=== PATIENT | female | born 1980 | race Caucasian/White ===

== ENCOUNTER 2018-09-08 21:00 | Outpatient (CLI) | payer BC ==
[2018-09-08] MEDS ORDERED: ACETAMINOPHEN TAB 325 MG TAB PO STA (22:14)
[2018-09-08 22:32] LABS: Appearance,Urine Clear (Clear); Bacteria,Urine Moderate /hpf; Bilirubin,Urine Negative (Negative); Blood,Urine Negative (Negative); Color,Urine Light Yellow; Glucose,Urine (UA) Negative (Negative); Ketones,Urine Negative (Negative); Leukocyte Esterase,Urine Trace (Negative); Mucus,Urine Occasional /hpf; Nitrite,Urine Negative (Negative); Protein,Urine Negative (Negative); RBC,Urine 1 /hpf (0-5); Specific Gravity,Urine 1.011 (1.001-1.035); Squamous Epithelial Cell,Urine 1 /hpf (0-4); Urobilinogen,Urine <2.0 mg/dL (<2.0); WBC,Urine 3 /hpf (0-5)
[2018-09-09 01:10] VITALS: BP 133/64; PULSE 82; RESP 18; TEMP 98
--- NOTE | 2018-09-22 18:01 | P.MSEPDOC ---
Presenting Problems - Arrival Data Date of Arrival on Unit: 09/08/18 Time of Arrival on Unit: 21:01 Mode of Transport: Wheelchair - Complaint OB-Reason for Admission/Chief Complaint: Possible Onset of Labor Comment: contractions felt in back that are 15-20 minutes apart. Medical History - Information : 4 Para: 3 Term: 0 : 3 Abortions: Spontaneous or Elective: 0 Number of Living Children: 3 - Gestational Age Gestational Age by NILA (wks/days): 32 Weeks and 4 Days Review of Systems - Review of Systems Constitutional: No problems Breast: No problems ENT: No problems Cardiovascular: No problems Respiratory: No problems Gastrointestinal: No problems Genitourinary: No problems Musculoskeletal: No problems Neurological: No problems Skin: No problems Vital Signs - Temperature Temperature: 98.0 F Temperature Source: Temporal Artery Scan - Pulse Right Sitting Brachial Pulse Rate: 82 Pulse Assessment Method: Automatic Cuff - Respirations Respiratory Rate: 18 Oxygen Delivery Method: Room Air - Blood Pressure Right Arm Sitting Blood Pressure: 133/64 Blood Pressure Mean: 87 Blood Pressure Source: Automatic Cuff Medical Screen Scoring (Pre) - Cervical Exam Dilation: 0 cm = 0 Membranes: Intact - Uterine Contractions Frequency: N/A Duration: N/A Intensity: N/A - Maternal Vital Signs Maternal Temperature: N/A Maternal Blood Pressure: N/A Signs of Preeclampsia: N/A Maternal Respirations: N/A - Pain Assessment Pain Location and Character: Lower, Back Pain Scale Used: Numeric (1 - 10) Pain Intensity: 6 Pain Management Goal: 3 Pain Description: *Acute, Cramping, Pressure Pain Radiation Location: n/a Pain Frequency: Intermittent Pain Duration: 15 Pain Duration Units: Minutes Pain Behavior: Facial Grimacing, Vomiting Pain Aggravating Factors: Activity, Walking Pharmacological Interventions: PRN Medication, Scheduled Medication - Assessment Baseline FHR: 120 Heart Rate - NICHD Category: Category I (Normal) = 0 NST: Reactive Position: N/A - Total Score Total Score (Pre): 0 - Level of Risk Level of Risk: Low (0-5) Physician Notification (Pre) - Physician Notified Physician Notified Date: 09/08/18 Physician Notified Time: 22:08 Physician/Practitioner Notifed:: chloé Spoke With: chloé New Order Received: Yes - Notification Comment Comment: UA, oral hydration, tylenol PO Physician Notification (Post) - Physician Notified Physician Notified Date: 09/09/18 Physician Notified Time: 22:08 Physician/Practitioner Notified:: chloé Spoke With: chloé New Order Received: Yes Disposition - Disposition OB Disposition: Discharge to home Discharge Date: 09/08/18 Discharge Time: 23:10 I agree with the RN Medical Screening Exam: Yes Risk & Benefit of care provided described in d/c instruction: No Diagnosis: FALSE LABOR BEFORE 37 COMPLETED WEEKS OF GEST, THIRD TRI
== END 2018-09-08 23:10 | disposition home or self-care (01) ==
LOC: FBPOP 21:00
PROVIDERS: ATTEND Obstetrics & Gynecology
DX: O47.03 False labor before 37 completed weeks of gestation, third trimester (principal); Z3A.32 32 weeks gestation of pregnancy
CPT/HCPCS: 59025; 81001; 99213

== ENCOUNTER 2018-10-06 13:42 | Outpatient (CLI) | payer BC ==
[2018-10-06 15:11] VITALS: BP 116/65; PULSE 90; RESP 16; TEMP 98.6
--- NOTE | 2018-11-05 11:53 | P.MSEPDOC ---
Presenting Problems - Arrival Data Date of Arrival on Unit: 10/06/18 Time of Arrival on Unit: 13:42 Mode of Transport: Ambulatory - Complaint OB-Reason for Admission/Chief Complaint: Rule Out SROM Comment: pt here with c/o leaking clear fluid for last three days, reports + fm , denies complications with , reports occasional contracitons that are irregular Medical History - Information : 4 Para: 3 Term: 3 : 0 Abortions: Spontaneous or Elective: 0 Number of Living Children: 3 - Gestational Age Gestational Age by NILA (wks/days): 36 Weeks and 3 Days Review of Systems - Review of Systems Constitutional: No problems Breast: No problems ENT: Nasal congestion Cardiovascular: No problems Respiratory: No problems Gastrointestinal: No problems Genitourinary: No problems Musculoskeletal: No problems Neurological: No problems Skin: No problems Comment: spoke with dr christopher regarding pt c/o of nasal congestion, pt instructed to try sudafed, claritin or tylenol products for relief Vital Signs - Temperature Temperature: 98.6 F Temperature Source: Temporal Artery Scan - Pulse Right Brachial Pulse Rate: 90 Pulse Assessment Method: Automatic Cuff - Respirations Respiratory Rate: 16 Oxygen Delivery Method: Room Air - Blood Pressure Right Arm Blood Pressure: 116/65 Blood Pressure Mean: 82 Blood Pressure Source: Automatic Cuff Medical Screen Scoring (Pre) - Cervical Exam Dilation: 1-3 cm = 1 Membranes: Intact - Uterine Contractions Frequency: > 5 minutes apart = 1 Duration: > 40 seconds = 2 Intensity: N/A - Maternal Vital Signs Maternal Temperature: N/A Maternal Blood Pressure: N/A Signs of Preeclampsia: N/A Maternal Respirations: N/A - Pain Assessment Pain Scale Used: Numeric (1 - 10) Pain Intensity: 0 - Maternal Trauma Maternal Trauma: N/A - Assessment Baseline FHR: 135 Heart Rate - NICHD Category: Category I (Normal) = 0 NST: Reactive Position: N/A Station: N/A - Total Score Total Score (Pre): 4 - Level of Risk Level of Risk: Low (0-5) Physician Notification (Pre) - Physician Notified Physician Notified Date: 10/06/18 Physician Notified Time: 14:33 Physician/Practitioner Notifed:: Dr Christopher Spoke With: Dr Christopher New Order Received: Yes (pa home) - Notification Comment Comment: pt ok to dc home at this time, appt scheduled for october 12 @ 0900 Disposition - Disposition OB Disposition: Discharge to home, Written follow up instructions reviewed Discharge Date: 10/06/18 Discharge Time: 14:40 I agree with the RN Medical Screening Exam: Yes Risk & Benefit of care provided described in d/c instruction: Yes Diagnosis: RELATED CONDITIONS, UNSPECIFIED, THIRD TRIMESTER
== END 2018-10-06 14:40 | disposition home or self-care (01) ==
LOC: FBPOP 13:42
PROVIDERS: ATTEND Obstetrics & Gynecology
DX: O26.93 Pregnancy related conditions, unspecified, third trimester (principal); Z3A.36 36 weeks gestation of pregnancy
CPT/HCPCS: 84112; 99213

== ENCOUNTER 2018-10-18 18:28 | Outpatient (CLI) | payer BC | END 2018-10-18 19:11 | disposition home or self-care (01) | LOC: FBPOP 18:28 | PROVIDERS: ATTEND Obstetrics & Gynecology | DX: O36.8130 Decreased fetal movements, third trimester, not applicable or unspecified (principal); Z3A.38 38 weeks gestation of pregnancy | CPT/HCPCS: 59025; 99213 ==

== ENCOUNTER 2018-10-27 10:39 | Outpatient (CLI) | payer BC ==
[2018-10-27 11:04] VITALS: BP 141/65; PULSE 117; RESP 16; TEMP 98.7
--- NOTE | 2018-11-05 11:54 | P.MSEPDOC ---
Presenting Problems - Arrival Data Date of Arrival on Unit: 10/27/18 Time of Arrival on Unit: 10:47 Mode of Transport: Ambulatory - Complaint OB-Reason for Admission/Chief Complaint: Decreased Movement Comment: pt arrived c/o decreased movement pt states she also passed her mucus plug yesterday Medical History - Information : 4 Para: 3 Term: 3 : 0 Abortions: Spontaneous or Elective: 0 Number of Living Children: 3 - Gestational Age Gestational Age by NILA (wks/days): 39 Weeks and 3 Days Review of Systems - Review of Systems Constitutional: No problems Breast: No problems ENT: No problems Cardiovascular: No problems Respiratory: No problems Gastrointestinal: Diarrhea Genitourinary: No problems Musculoskeletal: No problems Neurological: No problems Skin: No problems Vital Signs - Temperature Temperature: 98.7 F Temperature Source: Oral - Pulse Right Brachial Pulse Rate: 117 Pulse Assessment Method: Automatic Cuff - Respirations Respiratory Rate: 16 Oxygen Delivery Method: Room Air O2 Sat by Pulse Oximetry: 96 - Blood Pressure Right Arm Blood Pressure: 141/65 Blood Pressure Mean: 90 Blood Pressure Source: Automatic Cuff Medical Screen Scoring (Pre) - Cervical Exam Dilation: Exam Deferred Effacement: Exam Deferred Membranes: Intact - Uterine Contractions Frequency: > 5 minutes apart = 1 Duration: N/A Intensity: N/A - Maternal Vital Signs Maternal Temperature: N/A Maternal Blood Pressure: N/A Signs of Preeclampsia: N/A Maternal Respirations: N/A - Pain Assessment Pain Scale Used: Numeric (1 - 10) Pain Intensity: 2 Pain Management Goal: 2 Pain Description: Cramping Pain Behavior: Vocalization - Maternal Trauma Maternal Trauma: N/A - Total Score Total Score (Pre): 1 Medical Screen Scoring (Post) - Cervical Exam Dilation: Exam Deferred Effacement: Exam Deferred Membranes: Intact - Uterine Contractions Frequency: > 5 minutes apart = 1 Duration: N/A Intensity: N/A - Maternal Vital Signs Maternal Temperature: N/A Maternal Blood Pressure: N/A Signs of Preeclampsia: N/A Maternal Respirations: N/A - Assessment Heart Rate: 130 Heart Rate - NICHD Category: Category I (Normal) = 0 NST: Reactive Position: N/A Station: N/A - Total Score Total Score (Post): 1 - Post Treatment Level of Risk Post Treatment Level of Risk: Low (0-5) Physician Notification (Post) - Physician Notified Physician Notified Date: 10/27/18 Physician Notified Time: 12:00 Spoke With: dr christopher New Order Received: Yes - Notification Comment Comment: february discharge home and keep f/u appointment Disposition - Disposition OB Disposition: Discharge to home Discharge Date: 10/27/18 Discharge Time: 12:09 I agree with the RN Medical Screening Exam: Yes Risk & Benefit of care provided described in d/c instruction: Yes Diagnosis: DECREASED MOVEMENTS, THIRD TRIMESTER, UNSP
== END 2018-10-27 12:09 | disposition home or self-care (01) ==
LOC: FBPOP 10:39
PROVIDERS: ATTEND Obstetrics & Gynecology
DX: O36.8130 Decreased fetal movements, third trimester, not applicable or unspecified (principal); Z3A.39 39 weeks gestation of pregnancy
CPT/HCPCS: 59025; 99213

== ENCOUNTER 2018-10-31 09:11 | Inpatient (IN) | payer BC ==
[2018-11-01] MEDS ORDERED: METHYLERGONOVINE 0.2 MG/ML 1 ML AMP IM PRN (01:19)
[2018-11-01] MEDS ORDERED: OXYTOCIN 10 UNIT/ML 1 ML VIAL IM PRN (01:19)
[2018-11-01] MEDS ORDERED: CARBOPROST TROMETHAMINE 250 MCG/ML 1 ML AMP IM PRN (01:19)
[2018-11-01] MEDS ORDERED: LIDOCAINE 1% INJ 10MG/ML (20 ML MDV) SQ PRN (01:19)
[2018-11-01] MEDS ORDERED: TERBUTALINE 1 MG/ML VIAL SQ PRN (01:19)
[2018-11-01] MEDS ORDERED: BUTORPHANOL 1 MG/ML 1 ML VIAL IV PRN (01:22)
[2018-11-01] MEDS: LACTATED RINGERS 1,000 ML IV SCH ×3 (01:26→07:41)
--- NOTE | 2018-11-01 01:27 | P.HPOB ---
History of Present Illness H&P Date: 11/01/18 Chief Complaint: 40 and one sevenths weeks, labor The patient is a 38-year-old 4 para 3003 admitted at 40 and one sevenths weeks as established by 10 week ultrasound. She is admitted in active labor with all signs reassuring. Her has been uncomplicated though she does fall into the category of advanced maternal age and underwent testing which was negative for trisomy. She has additionally requested a tubal ligation which will likely be carried out at her 6 week visit unless a section was to become necessary. Group B strep status is negative. Obstetrical history: 4 para 3003 with 3 term vaginal deliveries without complications. Current statistics are listed in history of present illness. EDC of 10/31/2018 was established by 10 week ultrasound. Laboratory workup demonstrates a blood type of A+ with a negative antibody screen. Rubella status is immune. Remainder of the laboratory workup was within normal limits. Early Glucola was elevated and then followed by a normal three-hour glucose tolerance test as was the second trimester Glucola. Group B strep status is negative. Gynecologic history: Unremarkable with no history of any infections to include STDs. Review of Systems Review of systems is confined to history of present illness. Past Medical History Past Medical History: No Reported History History of Any Multi-Drug Resistant Organisms: None Reported Past Surgical History: No Surgical Hx Reported Smoking Status: Former smoker - Past Family History Mother Family Medical History: Cancer, Congestive Heart Failure (CHF), CVA/TIA, Diabetes Mellitus Medications and Allergies Home Medications Medication Instructions Recorded Confirmed Type ARIPiprazole [Abilify] 8 mg PO HS 09/22/16 11/01/18 History FLUoxetine HCL [PROzac] 10 mg PO HS 09/22/16 11/01/18 History Iron 18 mg PO DAILY 10/06/18 11/01/18 History Omeprazole [PriLOSEC] 10 mg PO DAILY 10/06/18 11/01/18 History Pnv,Calcium 72/Iron/Folic Acid 1 each PO DAILY 10/06/18 11/01/18 History [ Plus Tablet] Allergies Allergy/AdvReac Type Severity Reaction Status Date / Time No Known Allergies Allergy Verified 11/01/18 01:17 Exam Intake and Output 10/31/18 10/31/18 11/01/18 14:59 22:59 06:59 Other: Weight 104.326 kg In general, this is a well-developed, well-nourished white female in no acute distress. Her heart has a regular rhythm and rate without murmur. Her lungs are clear to auscultation bilaterally in all [place]. Her abdomen is gravid, nondistended, has normal active bowel sounds, soft, nontender, and without any palpable masses aside from the uterine fundus. Her extremities are without any cyanosis, clubbing, or edema and are nontender to palpation bilaterally. Digital cervical examination performed on admission demonstrates her cervix to be approximately 6 cm dilated, 90% effaced, with the vertex in presentation at - 2 station. Assessment and Plan (1) Active labor at term Current Visit: Yes Status: Acute Code(s): [id number] - SNOMED Code(s): 90047907 Plan: The patient has been admitted for active management of labor. She has requested an epidural catheter for analgesia which will be placed shortly. Following this, she will have artificial rupture of membranes carried out and then we will continue with expectant management as well as close maternal and surveillance.
[2018-11-01 01:35] VITALS: BMI 40.7
[2018-11-01 01:35] LABS: Anisocytosis Slight; Basophils % (A) 0 %; Eosinophils # (A) 0.1 k/uL (0-0.7); Eosinophils % (A) 1 %; HCT 33.9 % (34.0-46.0); HGB 10.9 gm/dL (11.4-16.0); Lymphocytes # (A) 2.2 k/uL (1.0-4.8); Lymphocytes % (A) 21 %; MCH 25.7 pg (25.0-35.0); MCHC 32.2 g/dL (31.0-37.0); MCV 79.7 fL (80.0-100.0); Mean Platelet Volume 9.6; Microcytosis Slight; Monocytes # (A) 0.5 k/uL (0-1.0); Monocytes % (A) 5 %; Neutrophils # (A) 7.6 k/uL (1.3-7.7); Neutrophils % (A) 71 %; Platelet Count 135 k/uL (150-450); RBC 4.25 m/uL (3.80-5.40); RDW 18.6 % (11.5-15.5); WBC 10.6 k/uL (3.8-10.6)
[2018-11-01] MEDS ORDERED: ROPIVACAINE 5MG/ML 20ML VIAL ONE (01:51)
[2018-11-01] MEDS ORDERED: fentaNYL (PF) 50 MCG/ML 5 ML AMP ONE (01:51)
[2018-11-01] MEDS ORDERED: SODIUM CHLORIDE 0.9% 100 ML BAG ONE (01:51)
[2018-11-01] MEDS ORDERED: OXYTOCIN 20 UNITS/1000 ML NS 1,000 ML IV SCH ×2 (03:00→09:00)
[2018-11-01] MEDS ORDERED: LANOLIN CREAM 5 GM TUBE TOPICAL PRN (08:55)
[2018-11-01] MEDS ORDERED: ZOLPIDEM 5 MG TAB PO PRN (08:55)
[2018-11-01] MEDS ORDERED: BENZOCAINE/MENTHOL SPRAY 1 GM/SPRAY AEROSOL TOPICAL PRN (08:55)
[2018-11-01] MEDS ORDERED: WITCH HAZEL 1 EACH MED..PAD TOPICAL PRN (08:55)
[2018-11-01] MEDS ORDERED: diphenhydrAMINE 25 MG CAP PO PRN (08:55)
[2018-11-01] MEDS ORDERED: ACETAMINOPHEN TAB 325 MG TAB PO PRN (08:55)
[2018-11-01] MEDS ORDERED: SIMETHICONE 80 MG CHEWABLE PO PRN (08:55)
[2018-11-01] MEDS ORDERED: diphenhydrAMINE 50 MG/ML 1 ML VIAL IVP PRN ×2 (08:55)
[2018-11-01] MEDS ORDERED: HYDROCORTISONE 2.5% RECTAL CREAM 30 GM TUBE RECTAL PRN (08:55)
[2018-11-01] MEDS ORDERED: HYDROcodone/APAP 5-325MG 1 EACH TAB PO PRN (08:55)
[2018-11-01] MEDS ORDERED: HYDROcodone/APAP 7.5-325MG 1 EACH TAB PO PRN (08:55)
[2018-11-01] MEDS ORDERED: diphenhydrAMINE 50 MG CAP PO PRN (08:55)
[2018-11-01] MEDS ORDERED: INFLUENZA VACCINE (6 MOS+) 60 MCG/0.5 ML SYRINGE IM ONE (08:56)
--- NOTE | 2018-11-01 08:59 | P.PROBDLV ---
Vaginal Delivery Note - . Vaginal Delivery Note: The patient is a 38-year-old 4 para 3003 admitted at 40 and one sevenths weeks by good dating parameters. She is admitted in active labor with all signs reassuring. Her has been uncomplicated though she falls into the category of advanced maternal age and underwent testing which was negative for trisomy. Group B strep status is negative. On labor and delivery, she had an epidural catheter placed for analgesia and then underwent artificial rupture of membranes demonstrating moderately meconium- stained fluid. She had Pitocin augmentation started and made slow progress through the later second stage of labor but ultimately progressed to complete. She pushed over the course of approximately 30 minutes to a normal spontaneous vaginal delivery of a viable 8 lbs. 10 oz. baby boy with Apgars of 9 at 1 minute and 9 at 5 minutes delivered in the direct occiput anterior position. There was a nuchal cord 1 which was reduced following delivery of the . The placenta was delivered spontaneously, intact, and grossly normal with a grossly normal relatively centrally inserted three-vessel cord. There were no lacerations of the perineum, vagina, or cervix. Estimated blood loss for the case is approximately 200 mL. There were no complications. All sponge, instrument, and needle counts were correct. Both mother and are resting comfortably in recovery.
[2018-11-01] MEDS: IBUPROFEN 600 MG TAB PO PRN ×2 (09:23→19:43)
[2018-11-01] MEDS: SENNOSIDES-DOCUSATE SODIUM 1 EACH TAB PO SCH (22:22)
[2018-11-02] MEDS: SENNOSIDES-DOCUSATE SODIUM 1 EACH TAB PO SCH (07:29)
[2018-11-02] MEDS: IBUPROFEN 600 MG TAB PO PRN (07:30)
[2018-11-02 07:38] VITALS: BP 139/79; PULSE 93; RESP 14; TEMP 97.1
--- NOTE | 2018-11-02 08:45 | P.DS ---
Providers Date of admission: 11/01/18 01:07 Expected date of discharge: 11/02/18 Attending physician: Ricky Mosley Primary care physician: Stated None - Discharge Diagnosis(es) (1) Active labor at term Current Visit: Yes Status: Acute (2) Normal spontaneous vaginal delivery Current Visit: Yes Status: Acute Hospital Course: The patient is a 38-year-old 4 para 3003 admitted at 40 and one sevenths weeks by good dating parameters. She is admitted in active labor with all signs reassuring. Her had been uncomplicated and she had negative testing for trisomy secondary to the category of advanced maternal age. Group B strep status was negative. On labor and delivery, she had an epidural catheter placed for analgesia and underwent artificial rupture of membranes. Pitocin augmentation was started showing thereafter. She made slow progress through the bladder phases of the active phase of labor though she ultimately did progress to complete and then pushed to a normal spontaneous vaginal delivery of a viable 8 lbs. 10 oz. baby boy with Apgars of 9 at 1 minute and 9 at 5 minutes. Her course was unremarkable vital signs remaining stable and her temperature was afebrile throughout. She was deemed stable for discharge on day #1 and was discharged home to follow-up in the office in 6 weeks' time routinely. Discharge instructions included calling for any significantly increased bleeding or foul-smelling lochia, significantly increased fever abdominal pain, perineal complaints, breast complaints, or anything else that concerned her. She was additionally instructed to have nothing in the vagina for at least 6 weeks time to include intercourse. She has requested tubal ligation which will be organized at the time of her visit to be done laparoscopically. She understood all of her instructions and agrees to follow up as noted above. Discharge medications included only [id number] analgesic pain medications as well as continued vitamins as she has opted to breast-feed. Maternal blood type is A+ and rubella status is immune. Procedures: #1. Epidural analgesia #2. Artificial rupture of membranes #3. Pitocin augmentation #4. Normal spontaneous vaginal delivery Patient Condition at Discharge: Good Plan - Discharge Summary New Discharge Prescriptions: No Action ARIPiprazole [Abilify] 8 mg PO HS FLUoxetine HCL [PROzac] 10 mg PO HS Pnv,Calcium 72/Iron/Folic Acid [ Plus Tablet] 1 each PO DAILY Iron 18 mg PO DAILY Omeprazole [PriLOSEC] 10 mg PO DAILY Discharge Medication List ARIPiprazole [Abilify] 8 mg PO HS 09/22/16 [History] FLUoxetine HCL [PROzac] 10 mg PO HS 09/22/16 [History] Iron 18 mg PO DAILY 10/06/18 [History] Omeprazole [PriLOSEC] 10 mg PO DAILY 10/06/18 [History] Pnv,Calcium 72/Iron/Folic Acid [ Plus Tablet] 1 each PO DAILY 10/06/18 [ History] Follow up Appointment(s)/Referral(s): Ricky Mosley MD [STAFF PHYSICIAN] - 6 Weeks Discharge Disposition: HOME SELF-CARE
== END 2018-11-02 10:30 | disposition home or self-care (01) | DRG 807 ==
LOC: 4FBP 11-01 01:07
PROVIDERS: ADMIT Obstetrics & Gynecology; ATTEND Obstetrics & Gynecology
PROC: 10E0XZZ Delivery of Products of Conception, External Approach (ICD-10-PCS; principal; 2018-11-01)
PROC: 00HU33Z Insertion of Infusion Device into Spinal Canal, Percutaneous Approach (ICD-10-PCS; 2018-11-01)
PROC: 3E0R3BZ Introduction of Anesthetic Agent into Spinal Canal, Percutaneous Approach (ICD-10-PCS; 2018-11-01)
DX: O69.81X0 Labor and delivery complicated by cord around neck, without compression, not applicable or unspecified (principal); Z37.0 Single live birth; O77.0 Labor and delivery complicated by meconium in amniotic fluid; O99.62 Diseases of the digestive system complicating childbirth; K21.9 Gastro-esophageal reflux disease without esophagitis; Z3A.40 40 weeks gestation of pregnancy; Z87.891 Personal history of nicotine dependence; Z79.899 Other long term (current) drug therapy; Z82.49 Family history of ischemic heart disease and other diseases of the circulatory system; Z83.3 Family history of diabetes mellitus; Z80.9 Family history of malignant neoplasm, unspecified; Z82.3 Family history of stroke
CPT/HCPCS: 85025; 86850; 86900; 86901; 90686

== ENCOUNTER → 2018-12-31 | Outpatient (CLI) | payer BC ==
[2018-12-31 12:14] LABS: Anisocytosis Slight; Basophils % (A) 0 %; Eosinophils # (A) 0.2 k/uL (0-0.7); Eosinophils % (A) 2 %; HGB 13.3 gm/dL (11.4-16.0); Lymphocytes # (A) 1.8 k/uL (1.0-4.8); Lymphocytes % (A) 26 %; MCH 25.8 pg (25.0-35.0); MCHC 30.9 g/dL (31.0-37.0); MCV 83.2 fL (80.0-100.0); Mean Platelet Volume 8.2; Monocytes # (A) 0.4 k/uL (0-1.0); Monocytes % (A) 5 %; Neutrophils # (A) 4.4 k/uL (1.3-7.7); Neutrophils % (A) 65 %; Platelet Count 205 k/uL (150-450); RBC 5.17 m/uL (3.80-5.40); RDW 16.6 % (11.5-15.5); WBC 6.7 k/uL (3.8-10.6)
== END | disposition home or self-care (01) ==
LOC: LABPAT 11:15
PROVIDERS: ATTEND Obstetrics & Gynecology
DX: Z01.812 Encounter for preprocedural laboratory examination (principal); Z64.0 Problems related to unwanted pregnancy
CPT/HCPCS: 85025

== ENCOUNTER 2019-01-09 08:26 | Day surgery (SDC) | payer BC ==
[2018-12-30 15:20] VITALS: BMI 36.3
[~2019-01-09 08:26] MED LIST: DEXAMETHASONE SOD PHOSPHATE 10 MG/ML 1 ML VIAL IV ONE; LACTATED RINGERS 1,000 ML IV SCH; MIDAZOLAM (PF) 2 MG/2 ML VIAL IV PRN; ONDANSETRON 4 MG/2 ML VIAL IVP ONE; Pre Op ABX Message 1 EACH MISC MISCELLANE ONE; SCOPOLAMINE 1.5MG/72HR PATCH TRANSDERM ONE
[2019-01-09] MEDS ORDERED: LIDOCAINE 1% 20 ML VIAL (10MG/ML) FOR IV START INTRADERMA ONE (08:58)
[2019-01-09] MEDS ORDERED: LACTATED RINGERS 1,000 ML IV ONE (08:58)
[2019-01-09] MEDS ORDERED: KETOROLAC 30 MG/ML 1 ML VIAL IVP PRN (10:09)
[2019-01-09] MEDS ORDERED: Acetaminophen-Codeine 300-30mg TAB PO PRN ×2 (10:09)
[2019-01-09] MEDS ORDERED: diphenhydrAMINE 50 MG/ML 1 ML VIAL IVP PRN (10:09)
[2019-01-09] MEDS ORDERED: METOCLOPRAMIDE 5 MG/ML 2 ML VIAL IVP PRN (10:09)
[2019-01-09] MEDS ORDERED: SIMETHICONE 80 MG CHEWABLE PO PRN (10:09)
[2019-01-09] MEDS ORDERED: ONDANSETRON 4 MG/2 ML VIAL IVP PRN (10:09)
[2019-01-09] MEDS ORDERED: LIDOCAINE 1% INJ 10MG/ML (20 ML MDV) ONE (10:16)
[2019-01-09] MEDS ORDERED: ePHEDrine SULFATE/0.9% NACL/PF 50 MG/5 ML SYRINGE IV ONE (10:16)
[2019-01-09] MEDS ORDERED: SUCCINYLCHOLINE CHLORIDE 100 MG/5 ML SYR IV ONE (10:16)
[2019-01-09] MEDS ORDERED: KETOROLAC 30 MG/ML 1 ML VIAL ONE (10:16)
[2019-01-09] MEDS ORDERED: fentaNYL (PF) 50 MCG/ML 2 ML AMP ONE (10:16)
[2019-01-09] MEDS ORDERED: PROPOFOL 10 MG/ML 20 ML VIAL IV ONE (10:16)
[2019-01-09] MEDS ORDERED: MIDAZOLAM 2 MG/2 ML VIAL ONE (10:16)
[2019-01-09] MEDS ORDERED: ACETAMINOPHEN IV (For NPO) 1,000 MG/100 ML VIAL ONE (10:16)
[2019-01-09] MEDS ORDERED: BUPIVACAINE (PF) 0.5% 30 ML VIAL SQ ONE ×2 (10:38→10:52)
--- NOTE | 2019-01-09 10:58 | P.OP ---
Date of Procedure: 01/09/19 Preoperative Diagnosis: #1. Multiparity #2. Undesired fertility Postoperative Diagnosis: Same Procedure(s) Performed: #1. Laparoscopic bilateral tubal occlusion with Filshie clips Anesthesia: BERTO Surgeon: Ricky Mosley Estimated Blood Loss (ml): 5 IV fluids (ml): 700 Urine output (ml): 75 Pathology: none sent Condition: stable Disposition: PACU Operative Findings: Preoperative pelvic examination demonstrated a roughly 5-6 weeks midplane mobile normal shaped uterus with normal adnexa bilaterally. Intraoperatively, and these findings were borne out with a relatively soft and slightly enlarged uterus consistent with recent status. The uterus, tubes, and ovaries were entirely normal to inspection otherwise. There is no evidence of endometriosis or any other pathology in the pelvis. The appendix was unable to visualize. The small and large intestine as well as the liver and diaphragm appeared normal. Description of Procedure: The patient was prepped and draped in usual fashion after general endotracheal anesthesia was admission by the anesthesiologist. A speculum was placed and the anterior lip of the surgical the single-tooth tenaculum allowing placement of an acorn cannula for manipulation. The bladder was draining approximately 75 mL of clear taqueria urine. Attention was then turned to the abdomen where a roughly half a centimeter incision was made in the vertical fold of the umbilicus allowing insertion of a 5 mm optical trocar under direct visualization without difficulty. A pneumoperitoneum was established. Trendelenburg positioning was utilized and a site was selected approximately 4-5 cm above the pubic symphysis in the midline where an 8 mm incision was made in the transverse plane allowing insertion of an 8 mm trocar under direct visualization without difficulty. A blunt probe was utilized to sweep the bowel from the pelvis and the findings were entirely normal as noted above. The probe was replaced with a Filshie clip applicator which was utilized to place a clip across the entire thickness of the isthmic portion of the fallopian tube on the right approximately 2-3 cm from the cornu of the uterus. A similar operation was carried out on the left without difficulty. After reexamining the abdomen and finding no pathology or other important findings, the entire pneumoperitoneum was evacuated through the 2 ports and the ports removed. The incisions were closed with interrupted subcuticular stitches of 4-0 Vicryl followed by half-inch Steri-Strips placed Mastisol. Prior to coming the incisions with Steri-Strips, each incision was infused with approximate 5 mL of half percent bupivacaine without epinephrine. Estimated blood loss for the entire case was 5 mL or less. There were no complications. All sponge, instrument, and needle counts were correct. The patient tolerated the procedure well and proceeded to the recovery room in stable condition.
[2019-01-09 11:13] VITALS: TEMP 97
[2019-01-09] MEDS: HYDROmorphone 0.5 MG/0.5 ML SYRINGE IVP PRN ×3 (11:36→12:09)
[2019-01-09] MEDS: LACTATED RINGERS 1,000 ML IV SCH ×2 (11:54→12:18)
[2019-01-09 12:53] VITALS: RESP 18
[2019-01-09] MEDS ORDERED: Acetaminophen-Codeine 300-30mg TAB PO ONE (13:20)
[2019-01-09 13:57] VITALS: BP 122/72; PULSE 97
== END 2019-01-09 14:40 | disposition home or self-care (01) ==
LOC: OR 08:26
PROVIDERS: ATTEND Obstetrics & Gynecology
DX: Z30.2 Encounter for sterilization (principal); F32.9 Major depressive disorder, single episode, unspecified; F41.9 Anxiety disorder, unspecified; K21.9 Gastro-esophageal reflux disease without esophagitis; Z79.899 Other long term (current) drug therapy
CPT/HCPCS: 81025; 58671; J2250 ×2; J1100; J2405; J2001; J3010; J1885; J0131; J0330; J2704; J1170

== ENCOUNTER 2019-11-23 12:07 | Observation (INO) | payer BC ==
[2019-11-23] MEDS ORDERED: LIDOCAINE 5% PATCH TOPICAL STA (12:40)
[2019-11-23] MEDS ORDERED: HYDROcodone/APAP 5-325MG 1 EACH TAB PO STA (12:41)
--- NOTE | 2019-11-23 13:07 | XR ---
EXAMINATION TYPE: XR chest 1V portable DATE OF EXAM: 11/23/2019 COMPARISON: NONE HISTORY: Back pain and chest pain after fall TECHNIQUE: Single frontal view of the chest is obtained. FINDINGS: There is no focal air space opacity, pleural effusion, or pneumothorax seen. The cardiac silhouette size is within normal limits. The osseous structures are intact. IMPRESSION: No acute process.
--- NOTE | 2019-11-23 13:08 | XR ---
EXAMINATION TYPE: XR pelvis AP view DATE OF EXAM: 11/23/2019 CLINICAL HISTORY: Pelvic pain and back pain after fall TECHNIQUE: A single AP view of the pelvis is obtained. COMPARISON: None. FINDINGS: There is no acute fracture/dislocation evident in the pelvis. The hip and sacroiliac join ts appear symmetric and unremarkable. The overlying soft tissue appears unremarkable. Tubal ligation clips are seen. IMPRESSION: There is no acute fracture or dislocation in the pelvis.
--- NOTE | 2019-11-23 13:11 | CT ---
EXAMINATION TYPE: CT brain ai gould DATE OF EXAM: 11/23/2019 COMPARISON: None HISTORY: Fall today with head, neck and low back pain. CT DLP: 1531.[address] Brain: Unenhanced CT of the brain was performed. The ventricles, basal cisterns and sulci overlying the cerebral convexities demonstrate a normal appe arance. There is no evidence for intracranial hemorrhage or sulcal effacement. No mass effects are seen. If symptoms persist consider MRI. Osseous calvarium is intact. IMPRESSION: No acute intracranial process CT Cervical Spine: Unenhanced CT of the cervical spine was performed with bone and soft tissue window settings submitted . Coronal and sagittal reconstruction is obtained. There is normal alignment and prevertebral soft tissues. I do not see evidence for fracture or sublu xation. No significant degenerative changes are present. The lung apices are clear. IMPRESSION: No evidence for acute fracture or subluxation of the cervical spine.
--- NOTE | 2019-11-23 13:19 | CT ---
EXAMINATION TYPE: CT lumbar spine wo con DATE OF EXAM: 11/23/2019 1:03 PM COMPARISON: None HISTORY: Fall today with head, neck and low back pain. CT DLP: 1197.6 mGycm Automated exposure control for dose reduction was used. Unenhanced CT of the lumbar spine was performed. Bone and soft tissue window settings are submitted as well as coronal and sagittal reconstructions. No compression deformities. Alignment is anatomic. No compression deformities. Hypertrophic changes n oted anteriorly. Postsurgical change in the pelvis incidentally noted. Assessment spinal canal is limited due to resolution and artifact. Disc bulging L4-L5 noted. Remainin g levels demonstrate no diagnostic evidence of canal stenosis, foraminal encroachment, or disc hernia tion. Partial sacralization of the L5 vertebral segment. There does appear to be a fracture of the left transverse process of T12, L1, and L2. IMPRESSION: 1. Acute fractures left transverse process of the presumed levels of T12, L1 and L2. 2. Disc bulging L4-L5 recommend follow-up MRI for assessment of canal stenosis or disc herniation.
--- NOTE | 2019-11-23 13:37 | ED ---
General Adult HPI - General Chief complaint: Fall Stated complaint: slip/fall/back pain/went unconcious Time Seen by Provider: 11/23/19 12:31 Source: patient Mode of arrival: ambulatory Limitations: no limitations - History of Present Illness Initial comments: Dictation was produced using [email or web address] dictation software. please excuse any grammatical, word or spelling errors. Chief Complaint: 39-year-old female presents with back pain. History of Present Illness: 39-year-old female presents with back pain and head pain after fall. Patient was rushing the house when she slipped on a patch of ice. Patient fell backwards landing on her back and striking her head. Patient does report positive loss of consciousness. Patient has no comorbidities. He states that she has significant back pain to her left lower back. Patient also has some mild occipital pain. The ROS documented in this emergency department record has been reviewed and confirmed by me. Those systems with pertinent positive or negative responses have been documented in the HPI. All other systems are other negative and/or noncontributory. PHYSICAL EXAM: General Impression: Alert and oriented x3, not in acute distress HEENT: Normocephalic atraumatic, extra-ocular movements intact, pupils equal and reactive to light bilaterally, mucous membranes moist. Cardiovascular: Heart regular rate and rhythm, S1&S2 audible, no murmurs, rubs or gallops Chest: Lungs clear to auscultation bilaterally, no rhonchi, no wheeze, no rales Abdomen: Bowel sounds present, abdomen soft, non-tender, non-distended, no organomegaly Musculoskeletal: Pulses present and equal in all extremities, no peripheral edema, tenderness to palpation over the left lower back area, positive straight leg test flexion at the left hip Motor: no focal deficits noted Neurological: CN II-XII grossly intact, no focal motor or sensory deficits noted Skin: Intact with no visualized rashes Psych: Normal affect and mood ED course: 39-year-old female presents with back pain and head pain after fall. All signs upon arrival are within acceptable limits. She has no neurologic deficits. Imaging studies were obtained. Computed tomography scan of the brain shows no acute processes. Computed tomography scan of the L-spine shows acute fractures of the left transverse processes of T12 to L2. Also some disc bulging at L4-L5. Pelvis x-rays nonacute. Chest x-ray is nonacute. Patient is in significant pain. We will plan to have patient admitted to trauma surgery with orthopedic surgery consultation. Discussed patient case with Dr. Heaton was went except patient's care. Discussed patient case with Dr. Prescott who requests to place consultation to Dr. Choco Jeronimo-spine surgery. Patient understandable agreeable to plan. - Related Data Home Medications Medication Instructions Recorded Confirmed ARIPiprazole [Abilify] 8 mg PO HS 09/22/16 12/30/18 FLUoxetine HCL [PROzac] 10 mg PO HS 09/22/16 12/30/18 ALPRAZolam [Xanax] 0.25 mg PO HS PRN 12/30/18 12/30/18 traZODone HCL [TraZODone HCl] 50 mg PO HS PRN 12/30/18 12/30/18 Allergies Allergy/AdvReac Type Severity Reaction Status Date / Time No Known Allergies Allergy Verified 11/23/19 12:20 Review of Systems ROS Statement: Those systems with pertinent positive or pertinent negative responses have been documented in the HPI. ROS Other: All systems not noted in ROS Statement are negative. Past Medical History Past Medical History: No Reported History History of Any Multi-Drug Resistant Organisms: None Reported Past Surgical History: No Surgical Hx Reported Additional Past Surgical History / Comment(s): WISDOM TEETH REMOVED UNDER ANESTHESIA Past Anesthesia/Blood Transfusion Reactions: No Reported Reaction Past Psychological History: Anxiety, Depression Smoking Status: Current every day smoker Past Alcohol Use History: None Reported Past Drug Use History: None Reported - Past Family History Mother Family Medical History: Congestive Heart Failure (CHF), CVA/TIA, Diabetes Mellitus Additional Family Medical History / Comment(s): HAD NON CANCEROUS BRAIN TUMOR General Exam Limitations: no limitations Course Vital Signs 11/23/19 11/23/19 12:20 13:21 Temperature 98.2 F 98.3 F Pulse Rate 79 68 Respiratory 16 18 Rate Blood Pressure 146/76 126/54 O2 Sat by Pulse 98 100 Oximetry Disposition Clinical Impression: Multiple transverse process fractures Disposition: ADMITTED IP TO THIS HOSP Condition: Fair Referrals: Sukhwinder Quevedo MD [Primary Care Provider] - 1-2 days Decision Time: 14:31
[2019-11-23] MEDS ORDERED: ACETAMINOPHEN TAB 325 MG TAB PO PRN (14:25)
[2019-11-23] MEDS ORDERED: ONDANSETRON 4 MG/2 ML VIAL IVP PRN (14:25)
[2019-11-23] MEDS ORDERED: HYDROcodone/APAP 5-325MG 1 EACH TAB PO PRN (14:25)
[2019-11-23] MEDS ORDERED: NALOXONE 0.4 MG/ML 1 ML VIAL IV PRN (14:25)
[2019-11-23 14:26] LABS: Basophils % (A) 0 %; Eosinophils # (A) 0.2 k/uL (0-0.7); Eosinophils % (A) 2 %; HCT 38.3 % (34.0-46.0); HGB 12.2 gm/dL (11.4-16.0); Hypochromasia Slight; Lymphocytes % (A) 22 %; MCH 26.1 pg (25.0-35.0); MCHC 31.8 g/dL (31.0-37.0); MCV 82.1 fL (80.0-100.0); Mean Platelet Volume 9.1; Monocytes # (A) 0.4 k/uL (0-1.0); Monocytes % (A) 4 %; Neutrophils # (A) 6.3 k/uL (1.3-7.7); Neutrophils % (A) 70 %; Platelet Count 220 k/uL (150-450); RBC 4.66 m/uL (3.80-5.40); RDW 15.7 % (11.5-15.5); WBC 8.9 k/uL (3.8-10.6)
[2019-11-23] MEDS ORDERED: ALPRAZolam 0.25 MG TAB PO PRN (14:31)
[2019-11-23] MEDS: SODIUM CHLORIDE 0.9% 1,000 ML IV SCH (14:31)
[2019-11-23 14:45] LABS: African American GFR (CKD) >90 (>60 ml/min/1.73 sqM); Anion Gap 9 mmol/L; Blood Urea Nitrogen 11 mg/dL (7-17); Calcium 9.4 mg/dL (8.4-10.2); Carbon Dioxide 25 mmol/L (22-30); Chloride 104 mmol/L (98-107); Glucose 91 mg/dL (74-99); Non-African American GFR(CKD) >90 (>60 ml/min/1.73 sqM); Potassium 4.6 mmol/L (3.5-5.1); Sodium 138 mmol/L (137-145)
[2019-11-23 15:01] LABS: INR 0.9 (<1.2); Partial Thromboplastin Time 22.1 sec (22.0-30.0); Prothrombin Time 9.6 sec (9.0-12.0)
[2019-11-23] MEDS: MORPHINE SULFATE 4 MG/ML SYRINGE IV PRN ×2 (15:24→22:07)
[2019-11-23] MEDS ORDERED: INFLUENZA VACCINE (6 MOS+) 60 MCG/0.5 ML SYRINGE IM ONE (15:49)
[2019-11-24] MEDS: MORPHINE SULFATE 4 MG/ML SYRINGE IV PRN (03:45)
[2019-11-24] MEDS ORDERED: KETOROLAC 30 MG/ML 1 ML VIAL IVP PRN (08:12)
--- NOTE | 2019-11-24 08:59 | P.GSHP ---
<María Daily - Last Filed: 11/24/19 08:52> History of Present Illness H&P Date: 11/24/19 Chief Complaint: pain, s/p fall CHIEF COMPLAINT: Fall HISTORY OF PRESENT ILLNESS: 39-year-old female who presented to the emergency room after suffering a fall yesterday. Patient reports she was running late for a meeting and was rushing out of the house. She stepped down from her porch and slipped on a patch of ice. She reports falling backwards and hitting her back on the step and hitting her head on the porch. She remembers looking at her phone before she walked out and the time was 0845. She reports she woke up laying on the porch and looked at her phone in the time was 0901. The patient reports significant lower back pain this morning. She also reports a headache. Denies any vision changes, blurred vision, or double vision. Denies any n eurological symptoms. Denies abdominal pain. PAST MEDICAL HISTORY: See list. PAST SURGICAL HISTORY: See list. SOCIAL HISTORY: No illicit drug use. REVIEW OF SYSTEMS: CONSTITUTIONAL: Denies fever or chills. Reports lower back pain HEENT: Denies blurred vision, vision changes, or eye pain. Denies hemoptysis. Reports headache. CARDIOVASCULAR: Denies chest pain or pressure. RESPIRATORY: No shortness of breath. GASTROINTESTINAL: Denies abdominal pain HEMATOLOGIC: Denies bleeding disorders. GENITOURINARY: Denies any blood in urine. SKIN: Denies pruitis. Denies rash. PHYSICAL EXAM: VITAL SIGNS: Reviewed. GENERAL: Well-developed in no acute distress. HEENT: No sclera icterus. Extraocular movements grossly intact. Moist buccal mucosa. Head is atraumatic, normocephalic. ABDOMEN: Soft. Nondistended. Nontender. NEUROLOGIC: Alert and oriented. Cranial nerves II through XII grossly intact. LABORATORY DATA: WBC 8.9. Hemoglobin 12.2. Platelet count 220. Sodium 138. Potassium 4.6. BUN 11. Creatinine 0.72. IMAGING: -Chest x-ray: Negative for acute process -CT cervical spine: No evidence for acute fracture or subluxation of the cervical spine -Pelvic x-ray: No acute fracture or dislocation of the pelvis -Thoracic spine CT: Acute fractures left transverse process of the presumed levels of T12, L1 and L2. Disc bulging L4 to L5 ASSESSMENT: 1. S/P fall from standing 2. Acute fractures left transverse process of T12, L1 and L2. Disc bulging L4 to L5 3. Acute lower back pain PLAN: 1. Diet as tolerated 2. Pain control. Continue Narcotics. Add Toradol for headache. Neuro checks Q4 3. Dr. Wilhelm on consult. Await recommendations and input Nurse practitioner note has been reviewed by physician. Signing provider agrees with the documented findings, assessment, and plan of care. Past Medical History Past Medical History: No Reported History Additional Past Medical History / Comment(s): Anemia with transfusions History of Any Multi-Drug Resistant Organisms: None Reported Past Surgical History: Tubal Ligation Additional Past Surgical History / Comment(s): WISDOM TEETH REMOVED UNDER ANESTHESIA, colonoscopy Past Anesthesia/Blood Transfusion Reactions: No Reported Reaction Additional Past Anesthesia/Blood Transfusion Reaction / Comment(s): Pt has received blood in past without reaction. Past Psychological History: Anxiety, Depression Additional Psychological History / Comment(s): Pt resides with her spouse and children. She is independent. Smoking Status: Former smoker Past Alcohol Use History: None Reported Additional Past Alcohol Use History / Comment(s): Pt started smoking in 2003 and quit in 2014. Past Drug Use History: None Reported - Past Family History Mother Family Medical History: Congestive Heart Failure (CHF), CVA/TIA, Diabetes Mellitus Additional Family Medical History / Comment(s): HAD NON CANCEROUS BRAIN TUMOR. Mother from sepsis/heart problem at the age of 54yrs. Father Family Medical History: No Reported History Additional Family Medical History / Comment(s): Father was healthy Medications and Allergies Home Medications Medication Instructions Recorded Confirmed Type ARIPiprazole [Abilify] 5 mg PO HS 09/22/16 11/23/19 History FLUoxetine HCL [PROzac] 20 mg PO HS 09/22/16 11/23/19 History ALPRAZolam [Xanax] 0.25 mg PO BID PRN 12/30/18 11/23/19 History Hydrocodone/Acetaminophen [[place] 1 tab PO Q6HR PRN 3 Days #12 tab 11/24/19 Rx 5-325] Allergies Allergy/AdvReac Type Severity Reaction Status Date / Time No Known Allergies Allergy Verified 11/23/19 14:50 Surgical - Exam Vital Signs Temp Pulse Resp BP Pulse Ox 98.2 F 79 16 146/76 98 11/23/19 12:20 11/23/19 12:20 11/23/19 12:20 11/23/19 12:20 11/23/19 12:20 Results - Labs 11/23/19 14:03 11/23/19 14:03 Abnormal Lab Results - Last 24 Hours (Table) 11/23/19 Range/Units 14:03 RDW 15.7 H (11.5-15.5) % Diabetes panel 11/23/19 Range/Units 14:03 Sodium 138 (137-145) mmol/L Potassium 4.6 (3.5-5.1) mmol/L Chloride 104 (98-107) mmol/L Carbon Dioxide 25 (22-30) mmol/L BUN 11 (7-17) mg/dL Creatinine 0.72 (0.52-1.04) mg/dL Glucose 91 (74-99) mg/dL Calcium 9.4 (8.4-10.2) mg/dL Calcium panel 11/23/19 Range/Units 14:03 Calcium 9.4 (8.4-10.2) mg/dL Pituitary panel 11/23/19 Range/Units 14:03 Sodium 138 (137-145) mmol/L Potassium 4.6 (3.5-5.1) mmol/L Chloride 104 (98-107) mmol/L Carbon Dioxide 25 (22-30) mmol/L BUN 11 (7-17) mg/dL Creatinine 0.72 (0.52-1.04) mg/dL Glucose 91 (74-99) mg/dL Calcium 9.4 (8.4-10.2) mg/dL Adrenal panel 11/23/19 Range/Units 14:03 Sodium 138 (137-145) mmol/L Potassium 4.6 (3.5-5.1) mmol/L Chloride 104 (98-107) mmol/L Carbon Dioxide 25 (22-30) mmol/L BUN 11 (7-17) mg/dL Creatinine 0.72 (0.52-1.04) mg/dL Glucose 91 (74-99) mg/dL Calcium 9.4 (8.4-10.2) mg/dL <Benji Heaton - Last Filed: 11/24/19 14:31> History of Present Illness As above. Patient's pain has improved. Appreciate orthospine evaluation. Anticipate discharge later today once brace is obtained. Follow-up with orthopedics and primary care postdischarge. Surgical - Exam Vital Signs Temp Pulse Resp BP Pulse Ox 98.2 F 79 16 146/76 98 11/23/19 12:20 11/23/19 12:20 11/23/19 12:20 11/23/19 12:20 11/23/19 12:20 Results - Labs 11/23/19 14:03 11/23/19 14:03 Diabetes panel 11/23/19 Range/Units 14:03 Sodium 138 (137-145) mmol/L Potassium 4.6 (3.5-5.1) mmol/L Chloride 104 (98-107) mmol/L Carbon Dioxide 25 (22-30) mmol/L BUN 11 (7-17) mg/dL Creatinine 0.72 (0.52-1.04) mg/dL Glucose 91 (74-99) mg/dL Calcium 9.4 (8.4-10.2) mg/dL Calcium panel 11/23/19 Range/Units 14:03 Calcium 9.4 (8.4-10.2) mg/dL Pituitary panel 11/23/19 Range/Units 14:03 Sodium 138 (137-145) mmol/L Potassium 4.6 (3.5-5.1) mmol/L Chloride 104 (98-107) mmol/L Carbon Dioxide 25 (22-30) mmol/L BUN 11 (7-17) mg/dL Creatinine 0.72 (0.52-1.04) mg/dL Glucose 91 (74-99) mg/dL Calcium 9.4 (8.4-10.2) mg/dL Adrenal panel 11/23/19 Range/Units 14:03 Sodium 138 (137-145) mmol/L Potassium 4.6 (3.5-5.1) mmol/L Chloride 104 (98-107) mmol/L Carbon Dioxide 25 (22-30) mmol/L BUN 11 (7-17) mg/dL Creatinine 0.72 (0.52-1.04) mg/dL Glucose 91 (74-99) mg/dL Calcium 9.4 (8.4-10.2) mg/dL
[2019-11-24] MEDS ORDERED: PANTOPRAZOLE 40 MG/10 ML VIAL IVP SCH (09:00)
[2019-11-24 11:04] VITALS: RESP 16
--- NOTE | 2019-11-24 12:09 | P.CNOR ---
History of Present Illness - [facility] Consult date: 11/24/19 Requesting physician: Sami Baig Consult reason: fracture (Left-sided transverse process fractures at T12, L1, and L2), back pain (Left-sided thoracolumbar pain status post fall) History of present illness: Patient is a very pleasant 39-year-old female who is seen and examined the bedside for further evaluation in regards to her left-sided transverse process fractures and acute thoracolumbar pain status post fall. Yesterday the patient states she slipped on some ice falling backwards. She did hit her head and loose consciousness at that time. Since that time she has been experiencing left-sided thoracolumbar pain. She denies any lower extremity weakness or radi culopathy bilaterally. She is awake, alert, and oriented today at the bedside. She does have significant pain at her thoracolumbar spine with movement. She continues to be seen by trauma surgery. They're continuing with neurological checks every 4 hours. They're continuing pain control with narcotics. They have added Toradol for headache. 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 CT imaging of the cervical spine was also performed at the time of her admission without evidence of acute findings. Past Medical History Past Medical History: No Reported History Additional Past Medical History / Comment(s): Anemia with transfusions History of Any Multi-Drug Resistant Organisms: None Reported Past Surgical History: Tubal Ligation Additional Past Surgical History / Comment(s): WISDOM TEETH REMOVED UNDER ANESTHESIA, colonoscopy Past Anesthesia/Blood Transfusion Reactions: No Reported Reaction Additional Past Anesthesia/Blood Transfusion Reaction / Comm: Pt has received blood in past without reaction. Past Psychological History: Anxiety, Depression Additional Psychological History / Comment(s): Pt resides with her spouse and children. She is independent. Smoking Status: Former smoker Past Alcohol Use History: None Reported Additional Past Alcohol Use History / Comment(s): Pt started smoking in 2003 and quit in 2014. Past Drug Use History: None Reported - Past Family History Mother Family Medical History: Congestive Heart Failure (CHF), CVA/TIA, Diabetes Mellitus Additional Family Medical History / Comment(s): HAD NON CANCEROUS BRAIN TUMOR. Mother from sepsis/heart problem at the age of 54yrs. Father Family Medical History: No Reported History Additional Family Medical History / Comment(s): Father was healthy Medications and Allergies Home Medications Medication Instructions Recorded Confirmed Type ARIPiprazole [Abilify] 5 mg PO HS 09/22/16 11/23/19 History FLUoxetine HCL [PROzac] 20 mg PO HS 09/22/16 11/23/19 History ALPRAZolam [Xanax] 0.25 mg PO BID PRN 12/30/18 11/23/19 History Hydrocodone/Acetaminophen [[place] 1 tab PO Q6HR PRN 3 Days #12 tab 11/24/19 Rx 5-325] Allergies Allergy/AdvReac Type Severity Reaction Status Date / Time No Known Allergies Allergy Verified 11/23/19 14:50 Physical Examination Physical exam: Patient is awake, alert, and oriented 3; patient is able to answer questions appropriately at the bedside Vital signs stable Good chest excursion with deep inspiration and expiration Examination of thoracic and lumbar spine reveals skin is intact with no abrasions, aspirations, or bruises; no erythema, purulence or signs of infection Significant pain on palpation over the paraspinal muscles on the left at the thoracolumbar junction No pain with palpation along the midline of the lower lumbar spine Dorsiflexion, plantarflexion, and extensor hallucis longus positive sustained bilaterally Lower extremity strength 5/5 bilaterally Straight leg test negative bilateral lower extremities No signs or symptoms of DVT; no calf pain No pain with internal and external rotation of the hips bilaterally Neurovascularly intact Results Pertinent studies: CT of the lumbar spine taken on 11/23/2019: Evidence of left-sided transverse process fractures at T12, L1, and L2 which appear to be fairly well maintained without significant displacement; overall alignment appears to be adequately maintained; no evidence of vertebral body compression fracture; no evidence of significant degenerative disc disease; L4-[address] of the cervical spine taken on 11/23/2019: Overall alignment is adequately maintained; C4-5 degenerative disc disease with some anterior and posterior osteophytic spurring; no evidence of acute fracture X-ray of the pelvis taken on 11/23/2019: No evidence of fracture dislocation within the pelvis; hip joint spacing appears to be well-maintained bilaterally - Labs Labs: Abnormal Lab Results - Last 24 Hours (Table) 11/23/19 Range/Units 14:03 RDW 15.7 H (11.5-15.5) % H & H 11/23/19 Range/Units 14:03 Hgb 12.2 (11.4-16.0) gm/dL Hct 38.3 (34.0-46.0) % Coagulation 11/23/19 Range/Units 14:03 INR 0.9 (<1.2) Result Diagrams: 11/23/19 14:03 11/23/19 14:03 Assessment and Plan Assessment: Assessment: Acute thoracolumbar pain Left-sided transverse process fractures at T12, L1, and L2 Status post fall with loss of consciousness L4-5 disc bulging C4-5 degenerative disc disease with osteophytic spurring (1) Status post fall Current Visit: Yes Status: Acute Code(s): Z91.81 - HISTORY OF FALLING SNOMED Code(s): 230369134 (2) Loss of consciousness Current Visit: Yes Status: Acute Code(s): R40.20 - UNSPECIFIED COMA SNOMED Code(s): 900083207 (3) Bulging lumbar disc Current Visit: Yes Status: Acute Code(s): M51.26 - OTHER INTERVERTEBRAL DISC DISPLACEMENT, LUMBAR REGION SNOMED Code(s): 858176154 (4) Acute thoracic back pain Current Visit: Yes Status: Acute Code(s): M54.6 - PAIN IN THORACIC SPINE SNOMED Code(s): 816138904 (5) Acute lumbar back pain Current Visit: Yes Status: Acute Code(s): M54.5 - LOW BACK PAIN SNOMED Code(s): 034176828 (6) Degeneration of intervertebral disc at C4-C5 level Current Visit: Yes Status: Acute Code(s): M50.321 - OTHER CERVICAL DISC DEGENERATION AT C4-C5 LEVEL SNOMED Code(s): 44035960 (7) Multiple transverse process fractures Current Visit: Yes Status: Acute Code(s): ZYX3064 - SNOMED Code(s): 58629824 Plan: Plan: 1. Patient has been experiencing acute left-sided thoracolumbar pain status post fall. CT imaging to show evidence of left-sided transverse process fractures at T12, L1, and L2 which correlate well with the patient's pain. After reviewing of imaging, physical examination the patient, and further discussion with the patient, we will currently planned to continue with conservative edmond tment at this time. A prescription has been written and provided to case management for an Exos LSO brace. Once this brace is delivered and fitted appropriately, patient should wear this brace while sitting upright at greater than 45, during increase activities, during ambulation. Brace does not have to or while lying in bed or while bathing. Following fitting of this brace, patient is clear for discharge from an orthopedic spine standpoint. Following discharge, patient may follow-up with Kaveh Canela PA-C or Dr. Satya Wilhelm at [facility]. We discussed patient may work to her tolerance with her LSO brace intact. 2. Patient will continue be seen and examined by general surgery following her recent fall with loss of consciousness Time with Patient: Greater than 30 (Including obtaining history, physical examination, reviewing of imaging, and dictation.)
[2019-11-24] MEDS: SODIUM CHLORIDE 0.9% 1,000 ML IV SCH (14:57)
[2019-11-24 15:35] VITALS: BP 99/64; PULSE 84; TEMP 98.5
== END 2019-11-24 17:25 | disposition home or self-care (01) ==
LOC: EC 12:07 → 4SSUR 14:25
PROVIDERS: ADMIT Surgery; ATTEND Surgery
DX: S22.089A Unspecified fracture of T11-T12 vertebra, initial encounter for closed fracture (principal); S32.019A Unspecified fracture of first lumbar vertebra, initial encounter for closed fracture; S32.029A Unspecified fracture of second lumbar vertebra, initial encounter for closed fracture; W00.0XXA Fall on same level due to ice and snow, initial encounter; Y92.007 Garden or yard of unspecified non-institutional (private) residence as the place of occurrence of the external cause; M50.321 Other cervical disc degeneration at C4-C5 level; Z23 Encounter for immunization; M46.02 Spinal enthesopathy, cervical region; M51.26 Other intervertebral disc displacement, lumbar region; F41.9 Anxiety disorder, unspecified; F32.9 Major depressive disorder, single episode, unspecified; Z87.891 Personal history of nicotine dependence; Z79.899 Other long term (current) drug therapy; Z82.49 Family history of ischemic heart disease and other diseases of the circulatory system; Z82.3 Family history of stroke; Z83.3 Family history of diabetes mellitus; Z84.89 Family history of other specified conditions
CPT/HCPCS: 96376 ×2; 96375; 96374; 99285; 36415; 80048; 85025; 85610; 85730; 72170; 71045; 72125; 72131; 70450; 90686; G0378 ×2; G0008; J2270 ×2; J1885

== ENCOUNTER → 2023-10-18 | Outpatient (CLI) | payer BC ==
[2023-10-18 20:27] LABS: Microalbumin Creatinine Ratio <81 mg/g Cr (0-30); Urine Creatinine 14.9 mg/dL (28.0-217.0)
[2023-10-19 01:59] LABS: Basophils # (A) 0.03 X 10*3/uL (0.00-0.10); Basophils % (A) 0.4 %; Eosinophils # (A) 0.21 X 10*3/uL (0.04-0.35); Eosinophils % (A) 3.1 %; HCT 33.3 % (37.2-46.3); Lymphocytes # (A) 2.52 X 10*3/uL (0.90-5.00); Lymphocytes % (A) 37.1 %; MCH 23.6 pg (27.0-32.0); MCV 78.5 FL (80.0-97.0); Mean Platelet Volume 11.9 FL (9.5-12.2); Monocytes # (A) 0.33 X 10*3/uL (0.20-1.00); Monocytes % (A) 4.9 %; NRBC Per 100 WBC 0 X 10*3/uL (0.00-0.01); Neutrophils # (A) 3.68 X 10*3/uL (1.80-7.70); Neutrophils % (A) 54.1 %; Platelet Count 244 X 10*3/uL (140-440); RBC 4.24 X 10*6/uL (4.10-5.20); RDW 16.8 % (11.5-14.5)
[2023-10-19 03:26] LABS: BUN/Creat Ratio 11.57 Ratio (12.00-20.00); Blood Urea Nitrogen 8.1 mg/dL (9.0-27.0); Chloride 102 mmol/L (96-109); Glucose 106 mg/dL (70-110); LDL Cholesterol,Calculated 92.4 mg/dL (0.0-131.0); Potassium 4.1 mmol/L (3.5-5.5); Sodium 139 mmol/L (135-145)
[2023-10-19 03:27] LABS: ALT 39 U/L (8-44); AST 36 U/L (13-35); Albumin 4.4 g/dL (3.8-4.9); Albumin/Globulin Ratio 1.69 Ratio (1.60-3.17); Alkaline Phosphatase 64 U/L (41-126); Calcium 9.9 mg/dL (8.7-10.3); Globulin 2.6 g/dL (1.6-3.3); Total Bilirubin 0.2 mg/dL (0.3-1.2)
[2023-10-19 11:52] LABS: Lead, Blood <0.5 ug/dL (<5.0)
== END | disposition home or self-care (01) ==
LOC: LABWHC1 12:55
PROVIDERS: ATTEND Pediatrics
DX: Z00.01 Encounter for general adult medical examination with abnormal findings (principal); Z13.220 Encounter for screening for lipoid disorders; E11.9 Type 2 diabetes mellitus without complications; Z77.011 Contact with and (suspected) exposure to lead; A48.1 Legionnaires' disease
CPT/HCPCS: 36415; 80053; 80061; 82043; 82525; 82570; 83036; 83655; 85025

== ENCOUNTER → 2024-01-10 | Outpatient (CLI) | payer BC ==
[2024-01-11 01:32] LABS: HCT 38.2 % (37.2-46.3); MCH 21.4 pg (27.0-32.0); MCHC 28.8 g/dL (32.0-37.0); MCV 74.3 FL (80.0-97.0); Mean Platelet Volume 11.6 FL (9.5-12.2); NRBC Per 100 WBC 0 X 10*3/uL (0.00-0.01); Platelet Count 332 X 10*3/uL (140-440); RBC 5.14 X 10*6/uL (4.10-5.20); RDW 22.5 % (11.5-14.5); WBC 11.44 X 10*3/uL (4.50-10.00)
[2024-01-11 02:12] LABS: Basophils # (A) 0.03 X 10*3/uL (0.00-0.10); Basophils % (A) 0.3 %; Eosinophils # (A) 0.12 X 10*3/uL (0.04-0.35); Lymphocytes # (A) 2.87 X 10*3/uL (0.90-5.00); Lymphocytes % (A) 25.1 %; Monocytes # (A) 0.63 X 10*3/uL (0.20-1.00); Monocytes % (A) 5.5 %; Neutrophils # (A) 7.75 X 10*3/uL (1.80-7.70); Neutrophils % (A) 67.8 %
== END | disposition home or self-care (01) ==
LOC: LABPAT 16:06
PROVIDERS: ATTEND Obstetrics & Gynecology
DX: Z01.812 Encounter for preprocedural laboratory examination (principal); N93.8 Other specified abnormal uterine and vaginal bleeding
CPT/HCPCS: 36415; 85025; 93005